=== PATIENT | male | born 1990 ===

== ENCOUNTER 2020-08-14 23:33 | Emergency (ER) | payer OTHER ==
[2020-08-15 01:08] VITALS: BP 136/82; PULSE 63; RESP 16; TEMP 98.1
--- NOTE | 2020-08-15 01:33 | ED ---
General Adult HPI - General Chief complaint: Recheck/Abnormal Lab/Rx Stated complaint: Covid Test Source: patient Mode of arrival: ambulatory Limitations: no limitations - History of Present Illness Initial comments: Patient here for covid test, refused medical examination - Related Data Allergies Allergy/AdvReac Type Severity Reaction Status Date / Time No Known Allergies Allergy Verified 08/14/20 23:36 Review of Systems ROS Statement: Those systems with pertinent positive or pertinent negative responses have been documented in the HPI. ROS Other: All systems not noted in ROS Statement are negative. Past Medical History Past Medical History: No Reported History History of Any Multi-Drug Resistant Organisms: None Reported Past Surgical History: No Surgical Hx Reported Past Psychological History: No Psychological Hx Reported Smoking Status: Never smoker Past Alcohol Use History: None Reported Past Drug Use History: None Reported General Exam Limitations: no limitations Course Vital Signs 08/14/20 08/15/20 23:34 01:07 Temperature 98.4 F 98.1 F Pulse Rate 79 63 Respiratory 18 16 Rate Blood Pressure 138/91 136/82 O2 Sat by Pulse 99 100 Oximetry Medical Decision Making - Lab Data Lab Results 08/14/20 Range/Units 23:48 Coronavirus (PCR) Not Detected (Not Detectd) Disposition Clinical Impression: Lab test negative for COVID-19 virus Disposition: HOME SELF-CARE Is patient prescribed a controlled substance at d/c from ED?: No Referrals: None,Stated [Primary Care Provider] - 1-2 days Time of Disposition: 01:33
== END 2020-08-15 01:40 | disposition home or self-care (01) ==
LOC: EC 23:33
DX: Z20.822 Contact with and (suspected) exposure to COVID-19 (principal)
CPT/HCPCS: 87635; 99282